=== PATIENT | male | born 1985 | race Two or more races ===

== ENCOUNTER 2017-10-19 10:21 | Emergency (ER) | payer MEDICAID ==
[~2017-10-19] VITALS: Ht 170.2 cm; Wt 77.1 kg
[2017-10-19] MEDS ORDERED: Lidocaine 2% Visc 15ml soln ORAL ONE (10:30)
[2017-10-19] MEDS ORDERED: Morphine Sulfate 4mg/ml Inj IVP ONE (10:30)
[2017-10-19] MEDS ORDERED: Mylanta II UD 30ml ORAL ONE (10:30)
[2017-10-19 11:04] LABS: BASOPHILS % (AUTO) 1.1 % (0.0-2.0); EOSINOPHILS % (AUTO) 1.3 % (0.0-3.0); HEMATOCRIT 45.3 % (42.0-52.0); HEMOGLOBIN 15.9 G/DL (14.2-18.0); LYMPHOCYTES % (AUTO) 36.3 % (20.0-45.0); MEAN CORPUSCULAR VOLUME 93 FL (80-99); MONOCYTES % (AUTO) 9.4 % (1.0-10.0); NEUTROPHILS % (AUTO) 51.9 % (45.0-75.0); PLATELET COUNT 389 K/UL (150-450); RED BLOOD COUNT 4.86 M/UL (4.70-6.10); RED CELL DISTRIBUTION WIDTH 10.5 % (11.6-14.8); WHITE BLOOD COUNT 9.6 K/UL (4.8-10.8)
[2017-10-19 11:15] LABS: ANION GAP 11 mmol/L (5-15); BLOOD UREA NITROGEN 11 mg/dL (7-18); CALCIUM 9.1 MG/DL (8.5-10.1); CARBON DIOXIDE 25 MMOL/L (21-32); CHLORIDE 102 MMOL/L (98-107); POTASSIUM 3.8 MMOL/L (3.5-5.1); SODIUM 138 MMOL/L (136-145)
[2017-10-19] MEDS ORDERED: HYDROmorphone 1mg/ml Carpuject IVP ONE ×2 (11:15→11:30)
[2017-10-19 11:19] LABS: ALANINE AMINOTRANSFERASE 29 U/L (12-78); ALBUMIN 4.5 G/DL (3.4-5.0); ALBUMIN/GLOBULIN RATIO 1.3 (1.0-2.7); ALKALINE PHOSPHATASE 61 U/L (46-116); ASPARTATE AMINO TRANSFERASE 18 U/L (15-37); BILIRUBIN,TOTAL 0.9 MG/DL (0.2-1.0)
[2017-10-19 12:00] VITALS: BP 105/54
[2017-10-19 13:00] VITALS: BP 120/79
[2017-10-19 13:00] LABS: APPEARANCE,URINE TURBID; BILIRUBIN, URINE NEGATIVE (NEGATIVE); COLOR,URINE PALE YELLOW; GLUCOSE, URINE (UA) NEGATIVE (NEGATIVE); KETONES,URINE NEGATIVE (NEGATIVE); LEUKOCYTE ESTERASE ,URINE 1+ (NEGATIVE); NITRITE,URINE NEGATIVE (NEGATIVE); PH,URINE 8 (4.5-8.0); PROTEIN,URINE NEGATIVE (NEGATIVE); UROBILINOGEN,URINE NORMAL MG/DL (0.0-1.0)
[2017-10-19 14:00] VITALS: BP 115/64
--- NOTE | 2017-10-19 15:36 | Emergency Room Report ---
History of Present Illness General Chief Complaint: Abdominal Pain Source: Patient Present Illness HPI Patient presents with epigastric pain which is severe. It started earlier this AM after he ate breakfast. The pain quickly became severe 10/10, burning epigastric not radiating constant. Vomiting food then bile. No coffee-grounds or blood. No melena. Has had this problem in the past. It has been severe like this in the past. He was seen 2 days ago at [facility]. Treated him with pain meds and discharged him quickly. The patient has a history of Helicobacter pylori which was treated several years ago. No longer connected to GI specialist. He's taking omeprazole 20 mg a day, ranitidine 150 twice a day, sucralfate. He has no other medicine for pain. He denies alcohol, and states or other causative agents. He's not been monitoring his diet as close as he could. He' s not followed by a GI specialist at this time. No fevers, URI, chest pain, joint pain, rashes, headache. He gets anxious when the pain is this severe. No alcohol or caffeine. No NSAIDS (possible [place]). He has smoked THC. Allergies: Coded Allergies: No Known Allergies (Unverified , 10/19/17) Patient History Past Medical History: see triage record Social History: Reports: drug use - THC; Denies: smoking, alcohol use Social History Narrative works construction Reviewed Nursing Documentation: PMH: Agreed; PSxH: Agreed Nursing Documentation-PMH Hx Gastrointestinal Problems: Yes - Gastritis Review of Systems All Other Systems: negative except mentioned in HPI Physical Exam Vital Signs Date Time Temp Pulse Resp B/P (MAP) Pulse Ox O2 Delivery O2 Flow Rate FiO2 10/19/17 10:25 97.9 89 25 135/86 100 Room Air 97.9 Sp02 EP Interpretation: reviewed, normal General Appearance: alert, GCS 15, moderate distress, other - vomiting uncontrollably Head: normocephalic Eyes: bilateral eye normal inspection, bilateral eye PERRL ENT: moist mucus membranes Neck: supple Respiratory: lungs clear, normal breath sounds Cardiovascular #1: regular rate, rhythm Cardiovascular #2: 2+ radial (R) Gastrointestinal: normal inspection, normal bowel sounds, no mass, non- distended, no rebound, guarding, tenderness - epigastric area Rectal: other - vomit guaiac neg Musculoskeletal: back normal, gait/station normal, normal range of motion Neurologic: alert, oriented x3, grossly normal Psychiatric: anxious - and in pain Skin: normal inspection, warm/dry, other - tattoos Medical Decision Making Diagnostic Impression: Primary Impression: Abdominal pain Qualified Codes: R10.13 - Epigastric pain Additional Impression: Gastritis Qualified Codes: K29.00 - Acute gastritis without bleeding ER Course Patient with h/o gastritis presents with severe abdominal pain in distress. DDx : gastritis, pancreatitis, AMI, servando, UTI amongst others. Patient evaluated with EKG, labs. Treatment with IV hydratoin, pepcid, analgesics and zofran. Imaging might be needed, but will follow repeated exams to determine. EKG without injury. Labs with normal trop , WBC and CMP. Lipase normal. Several doses of dilaudid given with improvement. Discussion about current regimen and what he feels caused worsening. Also discussed ways to monitor diet and need for GI specialist. Patient stable for outpatient observation and treatment. (He wants to go back to work but has had opiates. Discussed need for ride home. ) Laboratory Tests Test 10/19/17 10:45 10/19/17 12:15 White Blood Count 9.6 K/UL (4.8-10.8) Red Blood Count 4.86 M/UL (4.70-6.10) Hemoglobin 15.9 G/DL (14.2-18.0) Hematocrit 45.3 % (42.0-52.0) Mean Corpuscular Volume 93 FL (80-99) Mean Corpuscular Hemoglobin 32.7 PG (27.0-31.0) H Mean Corpuscular Hemoglobin Concent 35.1 G/DL (32.0-36.0) Red Cell Distribution Width 10.5 % (11.6-14.8) L Platelet Count 389 K/UL (150-450) Mean Platelet Volume 6.1 FL (6.5-10.1) L Neutrophils (%) (Auto) 51.9 % (45.0-75.0) Lymphocytes (%) (Auto) 36.3 % (20.0-45.0) Monocytes (%) (Auto) 9.4 % (1.0-10.0) Eosinophils (%) (Auto) 1.3 % (0.0-3.0) Basophils (%) (Auto) 1.1 % (0.0-2.0) Sodium Level 138 MMOL/L (136-145) Potassium Level 3.8 MMOL/L (3.5-5.1) Chloride Level 102 MMOL/L (98-107) Carbon Dioxide Level 25 MMOL/L (21-32) Anion Gap 11 mmol/L (5-15) Blood Urea Nitrogen 11 mg/dL (7-18) Creatinine 1.0 MG/DL (0.55-1.30) Estimate Glomerular Filtration Rate > 60 mL/min (>60) Glucose Level 103 MG/DL (74-106) Calcium Level 9.1 MG/DL (8.5-10.1) Total Bilirubin 0.9 MG/DL (0.2-1.0) Aspartate Amino Transferase (AST) 18 U/L (15-37) Alanine Aminotransferase (ALT) 29 U/L (12-78) Alkaline Phosphatase 61 U/L (46-116) Troponin I 0.000 ng/mL (0.000-0.056) Total Protein 7.9 G/DL (6.4-8.2) Albumin 4.5 G/DL (3.4-5.0) Globulin 3.4 g/dL Albumin/Globulin Ratio 1.3 (1.0-2.7) Lipase 145 U/L (73-393) Serum Alcohol < 3 mg/dL Urine Color Pale yellow Urine Appearance Turbid Urine pH 8 (4.5-8.0) Urine Specific [place] 1.010 (1.005-1.035) Urine Protein Negative (NEGATIVE) Urine Glucose (UA) Negative (NEGATIVE) Urine Ketones Negative (NEGATIVE) Urine Occult Blood Negative (NEGATIVE) Urine Nitrite Negative (NEGATIVE) Urine Bilirubin Negative (NEGATIVE) Urine Urobilinogen Normal MG/DL (0.0-1.0) Urine Leukocyte Esterase 1+ (NEGATIVE) H Urine RBC 0-2 /HPF (0 - 0) H Urine WBC 0-2 /HPF (0 - 0) Urine Squamous Epithelial Cells Occasional /LPF Urine Amorphous Sediment Many /LPF (NONE) H Urine Bacteria Few /HPF (NONE) Urine Opiates Screen Positive (NEGATIVE) H Urine Barbiturates Screen Negative (NEGATIVE) Phencyclidine (PCP) Screen Negative (NEGATIVE) Urine Amphetamines Screen Negative (NEGATIVE) Urine Benzodiazepines Screen Negative (NEGATIVE) Urine Cocaine Screen Negative (NEGATIVE) Urine Marijuana (THC) Screen Positive (NEGATIVE) H EKG Diagnostic Results Rate: normal Rhythm: NSR ST Segments: no acute changes Rhythm Strip Diag. Results EP Interpretation: yes Rhythm: NSR, no PVC's, no ectopy Last Vital Signs Date Time Temp Pulse Resp B/P (MAP) Pulse Ox O2 Delivery O2 Flow Rate FiO2 10/19/17 15:48 61 21 116/66 99 Room Air 10/19/17 12:28 36.6 Status: improved Disposition: HOME, SELF-CARE Condition: Improved Scripts Hydrocodone Bit/Acetaminophen 5-325* (NORCO 5-325*) 1 Each Tablet 1 TAB ORAL Q6H PRN for For Pain, #10 TAB 0 Refills Prov: Spencer Treviño M.D. 10/19/17 Referrals: NOT CHOSEN VIVI/,REFERRING (PCP) Spencer Treviño M.D. Oct 19, 2017 15:36
[2017-10-19] MEDS ORDERED: NORCO 5-325 TA1 EACH ORAL (15:37)
[2017-10-19 15:48] VITALS: BP 116/66
== END 2017-10-19 15:49 | disposition home or self-care (01) ==
LOC: EMR 13:00
DX: K29.00 Acute gastritis without bleeding (principal)
CPT/HCPCS: 36415; 80053; 80307; 80329; 81003; 83690; 84484; 85025; 93005; 96361; 96374; 96375; 99284; J1170; J2270; J2405